=== PATIENT | male | born 1940 | race Caucasian/White ===

== ENCOUNTER 2025-01-03 01:14 | Emergency (ER) | payer MEDICARE ==
[~2025-01-03] VITALS: Ht 182.9 cm; Wt 81.7 kg
[2025-01-03] MEDS ORDERED: Albuterol 2.5 MG/3 ML VIAL INH SCH (01:20)
[2025-01-03 01:56] LABS: BASOPHILS ABSOLUTE AUTO 0.11 K/mm3 (0.00-0.23); BASOPHILS PERCENT AUTO 1 % (0-2); EOSINOPHILS ABSOLUTE AUTO 0.71 K/mm3 (0.00-0.68); EOSINOPHILS PERCENT AUTO 9 % (0-6); Hematocrit 43.6 % (37.0-53.0); Hemoglobin 15.4 g/dL (13.5-17.5); IMMATURE GRAN ABSOLUTE AUTO 0.07 K/mm3 (0.00-0.10); IMMATURE GRAN PERCENT AUTO 1 % (0-1); LYMPHOCYTES ABSOLUTE AUTO 1.29 K/mm3 (0.84-5.20); LYMPHOCYTES PERCENT AUTO 16 % (21-46); MONOCYTES ABSOLUTE AUTO 0.84 K/mm3 (0.16-1.47); MONOCYTES PERCENT AUTO 10 % (4-13); Mean Corpuscular HGB Conc 35.3 g/dL (31.5-36.5); Mean Corpuscular Volume 86 fL (80-100); NEUTROPHILS ABSOLUTE AUTO 5.19 K/mm3 (1.96-9.15); NEUTROPHILS PERCENT AUTO 63 % (41-73); NRBC ABSOLUTE 0.00 K/mm3 (0.00-0.02); NRBC Auto 0.0 /100 WBC (0.0-0.2); Platelet Count 165 K/mm3 (150-400); RDW Coefficient Variation 12.6 % (11.7-14.2); RDW Standard Deviation 39.3 fL (35.1-46.3)
[2025-01-03] MEDS ORDERED: NS 1,000 ML IV SCH (02:05)
[2025-01-03 02:26] LABS: Alanine Aminotransfer (ALT/SGP 16.0 U/L (12-78); Albumin, Blood 3.0 g/dL (3.4-5.0); Albumin/Globulin Ratio 1.1 (0.8-1.8); Anion Gap 10.0 mmol/L (3-11); Aspartate Aminotrans (AST/SGOT 19.0 U/L (12-37); Bilirubin, Total 0.4 mg/dL (0.1-1.0); Blood Urea Nitrogen 22.0 mg/dL (8-24); CO2, Blood 26.0 mmol/L (21-32); Calcium, Blood 9.1 mg/dL (8.5-10.1); Chloride, Blood 100.0 mmol/L (98-108); Creatinine, Blood 1.18 mg/dL (0.60-1.20); Globulin, Blood 2.8 g/dL (2.2-4.0); Glucose, Blood 291.0 mg/dL (70-99); Potassium, Blood 3.6 mmol/L (3.5-5.5); Sodium, Blood 132.0 mmol/L (136-145); Total Protein, Blood 5.8 g/dL (6.4-8.2)
[2025-01-03] MEDS ORDERED: PRED20 PO (03:12)
== END 2025-01-03 03:41 | disposition home or self-care (01) ==
LOC: ER 01:14 → EDBD 01:14 → ER 03:41
PROVIDERS: Emergency Medicine
DX: J44.1 Chronic obstructive pulmonary disease with (acute) exacerbation (principal); I10 Essential (primary) hypertension; E11.9 Type 2 diabetes mellitus without complications
CPT/HCPCS: 71045; 80053; 84484; 85025; 93005; 93010; 96374; 99285-25; J2919; J7030

== ENCOUNTER 2025-01-19 13:38 | Observation (INO) | payer MEDICARE, OTHER ==
[~2025-01-19] VITALS: Ht 180.3 cm; Wt 93.0 kg
[~2025-01-19 13:38] MED LIST: PRED20 PO
[2025-01-19] MEDS ORDERED: NS 1,000 ML IV SCH (14:15)
[2025-01-19 14:24] LABS: pH Blood Venous 7.40 (7.34-7.37)
[2025-01-19 14:30] LABS: BASOPHILS ABSOLUTE AUTO 0.06 K/mm3 (0.00-0.23); BASOPHILS PERCENT AUTO 1 % (0-2); EOSINOPHILS ABSOLUTE AUTO 0.63 K/mm3 (0.00-0.68); EOSINOPHILS PERCENT AUTO 12 % (0-6); Hematocrit 45.4 % (37.0-53.0); Hemoglobin 14.9 g/dL (13.5-17.5); IMMATURE GRAN ABSOLUTE AUTO 0.04 K/mm3 (0.00-0.10); IMMATURE GRAN PERCENT AUTO 1 % (0-1); LYMPHOCYTES ABSOLUTE AUTO 0.69 K/mm3 (0.84-5.20); LYMPHOCYTES PERCENT AUTO 13 % (21-46); MONOCYTES ABSOLUTE AUTO 0.45 K/mm3 (0.16-1.47); MONOCYTES PERCENT AUTO 9 % (4-13); Mean Corpuscular HGB Conc 32.8 g/dL (31.5-36.5); Mean Corpuscular Volume 87 fL (80-100); NEUTROPHILS ABSOLUTE AUTO 3.34 K/mm3 (1.96-9.15); NEUTROPHILS PERCENT AUTO 64 % (41-73); NRBC ABSOLUTE 0.00 K/mm3 (0.00-0.02); NRBC Auto 0.0 /100 WBC (0.0-0.2); Platelet Count 137 K/mm3 (150-400); RDW Coefficient Variation 12.5 % (11.7-14.2); RDW Standard Deviation 39.7 fL (35.1-46.3)
[2025-01-19] MEDS ORDERED: LORazepam 2 MG/ML 1ML Injection ONE (14:37)
[2025-01-19] MEDS ORDERED: LORazepam 2 MG/ML 1ML Injection IV ONE (14:40)
[2025-01-19] MEDS ORDERED: INSULANI SC ×2 (14:58)
[2025-01-19] MEDS ORDERED: ALLO100 PO ×2 (14:58)
[2025-01-19] MEDS ORDERED: FINA5 PO ×2 (14:58)
[2025-01-19] MEDS ORDERED: PANT40 PO ×2 (14:58)
[2025-01-19] MEDS ORDERED: CREON DR 12,001 EACH PO (14:59)
[2025-01-19] MEDS ORDERED: TRAZ50 PO (14:59)
[2025-01-19 15:11] LABS: Source, Urine Straight Cath
[2025-01-19 15:12] LABS: Alanine Aminotransfer (ALT/SGP 19.0 U/L (12-78); Albumin, Blood 2.6 g/dL (3.4-5.0); Albumin/Globulin Ratio 0.7 (0.8-1.8); Anion Gap 14.0 mmol/L (3-11); Aspartate Aminotrans (AST/SGOT 14.0 U/L (12-37); Bilirubin, Total 0.3 mg/dL (0.1-1.0); Blood Urea Nitrogen 22.0 mg/dL (8-24); CO2, Blood 22.0 mmol/L (21-32); Calcium, Blood 9.6 mg/dL (8.5-10.1); Chloride, Blood 98.0 mmol/L (98-108); Creatinine, Blood 1.05 mg/dL (0.60-1.20); Globulin, Blood 3.5 g/dL (2.2-4.0); Glucose, Blood 681.0 mg/dL (70-99); Potassium, Blood 4.7 mmol/L (3.5-5.5); Sodium, Blood 129.0 mmol/L (136-145); Total Protein, Blood 6.1 g/dL (6.4-8.2)
[2025-01-19 15:26] LABS: Bilirubin, Urine Neg (Neg); Glucose Qualitative, Urine 4+ (Neg); Ketones, Urine Neg (Neg); Leukocyte Esterase, Urine 2+ (Neg); Protein, Urine 1+ (Neg); Specific Gravity, Urine 1.010 (1.003-1.022); Urobilinogen, Urine NORM (Normal)
[2025-01-19 15:31] LABS: Color, Urine Pale Yellow (P-Yellow)
[2025-01-19 15:33] LABS: Red Blood Cells, Urine 0-2 /hpf (0-2)
[2025-01-19] MEDS ORDERED: Insulin Regular 100 Unit/ML 1ML Dose SC ONE (15:35)
[2025-01-19] MEDS ORDERED: LOPE2C PO ×2 (21:28)
[2025-01-19] MEDS ORDERED: TAMSULOSIN HCL0.4 M1 PO ×2 (21:30)
[2025-01-19] MEDS ORDERED: STIOLTO RESPIMAT4 G1 INH ×2 (21:31)
[2025-01-19] MEDS ORDERED: [UNRECOGNIZED DRUG - OTHER] PO ×2 (21:35)
[2025-01-19] MEDS ORDERED: HUMALOG KW100 UNIT/1 SC ×2 (21:38)
[2025-01-20] MEDS ORDERED: Acetaminophen325 M1 PO ×2 (04:13)
[2025-01-20] MEDS ORDERED: Magic Bullet10 MG PR ×2 (04:21)
[2025-01-20] MEDS ORDERED: Milk of Magnesia PO ×2 (04:28)
--- NOTE | 2025-01-20 05:45 | NUR ---
ADMISSION AND SHIFT SUMMARY ASSUMED CARE AT 2056. ALERT, DISORIENTED TO TIME AND SITUATION, FORGETFUL. PT RESTLESS AND AGITATED AT TIMES, REDIRECTABLE. PRN ATIVAN DID NOT HAVE AN APPARENT EFFECT. COMFORT CARE MEASURES IN PLACE. PT DENIES PAIN, SOB. BEDREST AT THIS TIME; PT REPOSITIONS INDEPENDENTLY AND OFTEN. MONITORING SCATTERED ABRASIONS AT BLE. GOOD APPETITE. SAFETY PRECAUTIONS IN PLACE.
[2025-01-20] MEDS ORDERED: Amylase/Lipase/Protease DR Cap 12,000 PO SCH (08:30)
[2025-01-20] MEDS ORDERED: CREON DR 36,001 EACH PO ×2 (12:50)
--- NOTE | 2025-01-20 15:54 | NUR ---
SHIFT SUMMARY; PT A/OX2 (SELF AND PERSON), HAS INTERMITTEN CONFUSION TO WHERE HE IS AT AND SITUATION. PT IS REDIRECTABLE. PALLIATIVE AT BEDSIDE W/ FAMILY IN ROOM- SEE NOTE. PT HAS GOOD APPETITE FOR BREAKFAST, HOWEVER FOR LUNCH, PT REPORTS NOT FEELING HUNGRY. BED IN LOW POSITION. CALL LIGHT WITHIN REACH.
--- NOTE | 2025-01-21 06:28 | NUR ---
SHIFT SUMMARY ALERT AND ORIENTED TO SELF. COMFORT CARE MEASURES IN PLACE. PLEASANTLY CONFUSED, RECEPTIVE TO DIRECTION. PT PULLING AT EXTERNAL CATH; REMOVED THIS SHIFT. BOTH INCONTINENT AND CONTINENT VOIDS THEREAFTER. PT AMBULATES WITH GAIT BELT AND NURSE ASSIST. PT REMOVED IV; GAVE PERMISSION FOR 'NO IV NEEDED'. SAFETY PRECAUTIONS IN PLACE, BED IN LOW POSITION, BED ALARM ON.
[2025-01-21] MEDS ORDERED: KEPPRA250 M1 PO ×2 (13:44)
[2025-01-21] MEDS ORDERED: INSULANI SC (13:49)
--- NOTE | 2025-01-21 15:47 | NUR ---
DISCHARGE NOTE PT BEING [place]. REPORT CALLED TO [facility]. SON AT BEDSIDE TO TAKE BELONGINGS. PT LEFT WITH DENTURES IN MOUTH. PACKET PROVIDED FROM [facility]. PT ESCORTED VIA GURNEY TO [facility] [place]. NO QUESTIONS OR CONCERNS FROM PT OR SON PRIOR TO DC.
== END 2025-01-21 14:11 | disposition hospice, home (50) ==
LOC: ER 13:38 → MEDS 18:45 → ER 18:45 → MEDS 18:45 → ENPENDDIS 01-21 12:23 → MEDS 01-21 14:11
PROVIDERS: Emergency Medicine; ADMIT Internal Medicine
DX: C22.0 Liver cell carcinoma (principal); C79.31 Secondary malignant neoplasm of brain; R56.9 Unspecified convulsions; E10.65 Type 1 diabetes mellitus with hyperglycemia; R41.82 Altered mental status, unspecified; E87.1 Hypo-osmolality and hyponatremia; K86.89 Other specified diseases of pancreas; I48.91 Unspecified atrial fibrillation; J44.9 Chronic obstructive pulmonary disease, unspecified; C22.8 Malignant neoplasm of liver, primary, unspecified as to type; I44.2 Atrioventricular block, complete; D69.6 Thrombocytopenia, unspecified; Z88.8 Allergy status to other drugs, medicaments and biological substances
CPT/HCPCS: 70450; 71045; 80053; 81001; 82010; 82803; 82947; 84484; 85025; 87077; 87086; 87186; 93005; 93010; 96361; 96374; 99285-25; A9270; G0378; J1815; J2060; J7030

== ENCOUNTER 2025-01-25 11:41 | Emergency (ER) | payer MEDICARE, OTHER ==
[~2025-01-25] VITALS: Ht 177.8 cm; Wt 81.7 kg
[~2025-01-25 11:41] MED LIST changes: +ALLO100 PO; +Acetaminophen325 M1 PO; +CREON DR 12,001 EACH PO; +CREON DR 36,001 EACH PO; +FINA5 PO; +HUMALOG KW100 UNIT/1 SC; +INSULANI SC; +KEPPRA250 M1 PO; +LOPE2C PO; +Magic Bullet10 MG PR; +Milk of Magnesia PO; +PANT40 PO; +STIOLTO RESPIMAT4 G1 INH; +TAMSULOSIN HCL0.4 M1 PO; +TRAZ50 PO; +[UNRECOGNIZED DRUG - OTHER] PO
== END 2025-01-25 13:20 | disposition home or self-care (01) ==
LOC: ER 11:41
DX: E11.65 Type 2 diabetes mellitus with hyperglycemia (principal); R41.0 Disorientation, unspecified; C22.8 Malignant neoplasm of liver, primary, unspecified as to type; C79.31 Secondary malignant neoplasm of brain; K21.9 Gastro-esophageal reflux disease without esophagitis; N40.0 Benign prostatic hyperplasia without lower urinary tract symptoms; Z51.5 Encounter for palliative care; Z88.8 Allergy status to other drugs, medicaments and biological substances; Z79.4 Long term (current) use of insulin; Z79.899 Other long term (current) drug therapy
CPT/HCPCS: 82947; 99283